=== PATIENT | female | born 1985 | race Hispanic/Latino ===

== ENCOUNTER → 2024-01-09 | Day surgery (SDC) | payer OTHER ==
[~2024-01-09] MED LIST: FENTANYL CITR 100 MCG/2 ML ONE; GLYCOPYRROLATE 0.2 MG/ML SYR ONE; KETOROLAC 30 MG/ML INJ ONE; LIDOCAINE 2% MPF 5 ML VIAL ONE; MIDAZOLAM HCL 2 MG/2 ML INJ ONE; NEOSTIGMINE 1 MG/ML -10 ML VIAL ONE; ONDANSETRON 4 MG/2 ML VIAL ONE; ROCURONIUM 50 MG/5 ML VIAL IV ONE; dexAMETHasone 10 MG/ML VIAL ONE; propofoL 200 MG/20 ML VIAL IV ONE
[2024-01-09 07:54] LABS: Absolute Basophils 0.1 K/uL (0-0.5); Absolute Eosinophils 0.1 K/uL (0-0.5); Absolute Lymphocytes (CBC) 3.1 K/uL (0.7-4.9); Absolute Monocytes 0.8 K/uL (0.1-1.3); Absolute Neutrophil 5.4 K/uL (1.8-8.0); Basophils % 0.7 % (0-1.3); Eosinophils % 0.6 % (0-4.4); Hematocrit 38.3 % (36.0-45.0); MCH 30.4 pg (27.0-35.0); MCHC 33.9 g/dL (32.0-36.0); MCV 89.4 fL (80-100); MPV 7.6 fL (7.6-11.3); Monocytes % 8.4 % (3.3-12.3); Neutrophils % 57.3 % (41.7-73.7); Nucleated Red Blood Cells % 0.1 % (0-0); Platelets 311 thou/uL (152-406); RBC Red Blood Cell Count 4.28 M/uL (3.86-4.86); Red Cell Distribution Width 14.3 % (12.1-15.2)
--- NOTE | 2024-01-09 07:56 | RAD REPORT ---
EXAM DESCRIPTION: RAD - Chest Pa And Lat (2 Views) - 01/09/2024 7:49 am CLINICAL HISTORY: PRE-OP Chest pain. COMPARISON: No comparisons FINDINGS: The lungs are clear. The heart is normal in size. No displaced fractures. IMPRESSION: No acute or concerning finding suspected.
[2024-01-09] MEDS: Ringers Lactate 1,000 ML IV ONE (07:58)
[2024-01-09 08:00] LABS: Anion Gap 8.9 mEq/L (5.0-15.0); Potassium 3.9 mEq/L (3.5-5.1)
[2024-01-09] MEDS: CIPROFLOXACIN 400mg IV 400 MG/200 ML BAG IV ONE (11:03)
--- NOTE | 2024-01-09 11:56 | P.BOP ---
Preoperative diagnosis: tender incisional umbilical hernia Postoperative diagnosis: same Primary procedure: Laparoscopic repair of tender incisional umbilical hernia with mesh [employer] Operator: Gerri Polanco (Zuly) Estimated blood loss: <10cc Specimen: sac Findings: omental adhesions, hernia, Anesthesia: General Complications: None Implants: medium ventralex Transferred to: Recovery Room Condition: Good
[2024-01-09] MEDS: HYDROMORPHONE HCL 1 MG/ML INJ ONE (12:34)
[2024-01-09] MEDS: CODEINE 30MG/APAP 300MG TAB ONE (13:40)
[2024-01-09 15:07] VITALS: BP 97/60; TEMP 97.7; O2SAT 100
--- NOTE | 2024-01-09 20:39 | OP ---
Date of Procedure: 01/09/2024 Surgeon: Emile Gray MD [employer] Supervisor: YIMI Harrington. Preoperative Diagnosis: Tender incisional umbilical hernia. Postoperative Diagnosis: Tender incisional umbilical hernia. Procedure: Laparoscopic repair of tender incisional umbilical hernia with mesh. Estimated Blood Loss: Less than 10 cc. Specimen: Hernia sac. Findings: Omental adhesions. DICTATION ENDS HERE. WENDY/ADELA Voice ID: [id number] Report ID: [id number]
--- NOTE | 2024-01-09 21:39 | OP ---
Date of Procedure: 01/09/2024 Surgeon: Emile Gray MD Bonbon Dipper: Gerri Golden. Preoperative Diagnosis: Tender incisional umbilical hernia. Postoperative Diagnosis: Tender incisional umbilical hernia. Procedure: Laparoscopic repair of tender incisional umbilical hernia with mesh. Estimated Blood Loss: Less than 10 cc. Anesthesia: General plus local. Complications: None. Implants: Medium Ventralex. Indications For Procedure: This is the case of a 38-year-old patient who comes to us with above diag noses. Fully explained the benefits, alternatives, and risks of laparoscopic versus open repair of t shahbaz incisional umbilical hernia, which include, but not limited to infection, bleeding, damage to a djacent structures, anesthesia complication, recurrence, TN, and even . She also understands th is may not relieve the symptoms. She might need more than one surgical intervention. She also under stands we might be using mesh in that region, so the pros and cons of mesh placement were discussed w ith the patient. All the questions were answered to her satisfaction. She has signed a consent. Description Of Procedure: Patient was brought to the operating room, placed in supine position. Ane sthesia was done without complication. Abdominal area was prepped and draped in sterile fashion Ac velia 0.5% was injected for the area to be incised. First incision was done in the periumbilical ariel on. Incision was carried down to subcutaneous tissue and then we noticed this hernia present. There is some incarcerated omentum trapped in that region and some of that had to be released, some of darleen t had to be removed, and allowed to retract, properly inspect to make sure there was no bleeding. Al so, the falciform ligament was trying to get through this hernia too. Too many adhesions and bloody tissue in that area. We are going to have to laparoscopically separate those tissue to be able to co rrect and find the fascia properly and most likely put a mesh in that region nice and flat since the fascial edges look weak. So, I placed Vicryl #1 inside the fascia. Emmanuel trocar was carefully intr oduced. No bleeding was obtained. I placed 2 more trocars, 5 mm each one of them in the left and ri ght side of the abdomen. This allowed me to put the camera. With the 30 degree camera, visualized t he periumbilical region and indeed as we planned, we have falciform ligaments bulging in that area an d will not allow the closure or the mesh to seat properly. So, using the LigaSure, we proceeded to r emove some adhesions that we have from the omentum to the anterior abdominal wall and also trying to retract the falciform ligament at least enough to be able to visualize the fascial edges, have clean repair and put the mesh in that region, so we selected a medium mesh and we placed that through the H asson trocar. We placed on the fascia, Vicryl #1 multiple times. The mesh was against the anterior abdominal wall. We secured that in place with SorbaFix. I then removed the mesh straps and then con tinued SorbaFix circumferentially to make sure that we have no bowel in between. Once we have that, we proceeded to approximate the fascial edges with #1 Vicryl until we have AirSeal. The area was irr igated. No bleeding. At that moment, we inspected the area of the omentum, looks no bleeding. The area of the falciform ligament, no bleeding. So under direct visualization, we deflated the pneumope ritoneum, and then after that, removed the 5 mm trocars. Once again, the fascia was closed with #1 V icryl and the skin approximated with 3-0 chromic in a subcuticular fashion with Steri-Strips on top. Sponge count, instrument counts correct. Patient tolerated the procedure well. Patient was sent to recovery in stable condition. Disposition: Home. Activity: As tolerated. No heavy lifting. Follow up in my office in 1 week, call for appointment [phone]. Condition: Stable. Keep the area dry for 48 hours, then may shower. Keep Steri-Strips intact. Medications: See orders. HM/MODL Voice ID: [id number] Report ID: [id number]
== END | disposition home or self-care (01) ==
LOC: OR 07:08
PROVIDERS: ATTEND Surgery
PROC: 0WUF4JZ Supplement Abdominal Wall with Synthetic Substitute, Percutaneous Endoscopic Approach (ICD-10-PCS; principal; 2024-01-09 12:00)
DX: K43.2 Incisional hernia without obstruction or gangrene (principal); K21.9 Gastro-esophageal reflux disease without esophagitis
CPT/HCPCS: 93005; 85025; 80048; 36415; 84703; 88302; 71046; 49593; J2704; J2710; J2001; J2250; J3010; J1100; J1170; J2405; J0744; J7120